=== PATIENT | male | born 1955 | race Caucasian/White ===

== ENCOUNTER 2020-04-10 21:42 | Emergency (ER) | payer MEDICARE, SELFPAY ==
[2020-04-10 21:52] VITALS: BP 149/84; PULSE 83; RESP 20; TEMP 36.7; O2SAT 95; BMI 29.8
--- NOTE | 2020-04-10 22:09 | CTR_ITS ---
PROCEDURE INFORMATION: Exam: CT Abdomen And Pelvis Without Contrast Exam date and time: 04/10/2020 10:34 PM Age: 64 years old Clinical indication: Abdominal pain; Patient HX: C/O abd cramping; Additional info: Abd pain TECHNIQUE: Imaging protocol: Computed tomography of the abdomen and pelvis without contrast. Radiation optimization: All CT scans at this facility use at least one of these dose optimization techniques: automated exposure control; mA and/or kV adjustment per patient size (includes targeted exams where dose is matched to clinical indication); or iterative reconstruction. COMPARISON: No relevant prior studies available. RADIATION DOSE METRICS: Total DLP (mGy-cm): 1542.05 FINDINGS: Mediastinal space: A moderate hiatal hernia is present. Liver: There is a diffuse decrease in hepatic parenchymal density, consistent with fatty infiltration. Gallbladder and bile ducts: There is sludge or stones in the gallbladder. The gallbladder is distended. No definite wall thickening or cholecystitis. There is no common bile duct dilation. Pancreas: Normal. No ductal dilation. Spleen: Normal. No splenomegaly. Adrenals: There is mild nodular thickening of both adrenal glands compatible with hyperplasia. Kidneys and ureters: There is no evidence of hydronephrosis. There is no evidence of renal calcifications. Stomach and bowel: Extensive diverticulosis is present in the distal colon. There is no evidence of colitis/diverticulitis. There is no evidence of intestinal perforation or obstruction. Appendix: A normal appendix is identified. Intraperitoneal space: Unremarkable. No free air. No significant fluid collection. Vasculature: The aorta demonstrates moderate atherosclerotic calcification. Lymph nodes: Unremarkable.No enlarged lymph nodes. Bladder: The bladder is normal. Reproductive: The prostate demonstrates mild nonspecific enlargement. The seminal vesicles are normal. The prostate demonstrates nonspecific parenchymal calcifications. Bones/joints: There are moderate degenerative changes in the spine. No acute bony abnormality. There is a vacuum disc at L3-L4. Soft tissues: There is a nonobstructing left inguinal hernia. There is a tiny fat filled umbilical hernia. Other findings: There is levoscoliosis. CT/CT abdomen pelvis wo con [id number] IMPRESSION: 1. There is sludge or stones in the gallbladder. The gallbladder is distended. No definite wall thickening or cholecystitis. No duct dilatation. 2. Diverticulosis without diverticulitis. No bowel thickening or inflammatory changes. No hydronephrosis or obstructing calculi. Radiation Dose CTDIVOL = (mGy): DLP = 1542.05 (mGy-cm)
[2020-04-10 22:22] LABS: Basophils % 0.3 %; Eosinophils # 0.2 10^3/uL (0.0-0.8); Eosinophils % 1.7 %; Hematocrit 42.6 % (42.0-52.0); Hemoglobin 14.2 g/dL (11.7-16.6); Lymphocytes # 0.9 10^3/uL (0.8-4.8); Lymphocytes % 8.7 %; Mean Corpuscular HGB Conc 33.3 g/dL (30.0-36.0); Mean Corpuscular Hemoglobin 33.8 pg (28.0-34.0); Mean Corpuscular Volume 101.4 fL (80-94); Mean Platelet Volume 9.6 fL (7.4-10.4); Monocytes # 0.5 10^3/uL (0.2-0.9); Neutrophils # 8.9 10^3/uL (1.8-7.7); Neutrophils % 83.8 %; Nucleated Red Blood Cells % 0 %; Platelet Count 242 10^3/cmm (130-400); Red Cell Distribution Width 13.3 % (12.1-15.1); White Blood Count 10.6 10^3/uL (4.0-10.0)
[2020-04-10 22:38] LABS: Alanine Aminotransferase 125 U/L (0-41); Albumin Level 4.3 g/dL (3.5-5.2); Alkaline Phosphatase 246 IU/L (40-130); Anion Gap 19.6 (5-19); Aspartate Amino Transferase 191 U/L (0-40); Blood Urea Nitrogen 36 mg/dL (8-23); C Reactive Protein 6.7 mg/L (0.0-4.9); Calcium 9.1 mg/dL (8.5-10.5); Carbon Dioxide 29 mmol/L (22-29); Chloride 96 mmol/L (98-107); Globulin 3.3 g/dL (1.3-4.6); Glomerular Filtration Rate 38.1 mL/min (90-130); Glucose 274 mg/dL (65-115); Osmolality Calculated 299 mOsm/kg (285-295); Potassium 3.6 mmol/L (3.5-5.1); Sodium 141 mmol/L (136-145); Total Bilirubin 1.6 mg/dL (0.15-1.2); Total Protein 7.6 g/dL (6.6-8.7)
[2020-04-10] MEDS: lidocaine 2% viscous 15 ML, aluminum-mag hydrox-simethicon 30 ML, sucralfate oral liq 1 GM PO (22:46)
[2020-04-10] MEDS: ketorolac 30 mg/mL INJ IVP (22:47)
[2020-04-10] MEDS: ondansetron 2 mg/ML SDV 2 mL 4 MG IVP (22:47)
[2020-04-10 22:51] LABS: Lipase 344 U/L (13-60)
--- NOTE | 2020-04-10 22:55 | W.ED.ABDPA2 ---
HPI - Abdominal Pain General: Chief Complaint: Abdominal Pain Stated Complaint: abd pain Time Seen by Provider: 04/10/20 22:01 History of Present Illness: HPI narrative: 64-year-old male with no history of belly surgery. He presents with mainly upper abdominal discomfort that started this evening around 5 PM. He had been to eat out with his daughters for Father's Day a couple of hours prior. He was nauseated. No vomiting. No diarrhea. No blood in his stool. No fever. No one else was sick. His belly pain is improved, but is still significant. MD elicited complaint: abdominal pain Pertinent past history: none Onset (ago): hour(s) Location: Epigastric, LUQ and RUQ Severity: severe Quality: cramping, stabbing and aching Radiation: none Migration to: no migration Exacerbating factors: nothing Relieving factors: nothing Associated Symptoms: Reports nausea; Denies change in bowel habits, change in stool character, constipation, diarrhea, dysuria, fever(s), hematuria, hematemesis and vomiting Review of Systems Const: Denies: fever(s) Eyes: Denies: change in vision or blurry vision ENMT: Denies: swelling of lips/tongue, change in hearing, epistaxis, post nasal drip or sinus pain Card: Denies: chest pain, palpitations, irregular heart rhythm, edema, dyspnea on exertion or orthopnea Resp: Denies: dyspnea, productive cough, non-productive cough or wheezing GI: Reports: nausea; Denies: vomiting, hematemesis, diarrhea, constipation, change in bowel habits or change in stool character : Denies: difficulty urinating, dysuria or hematuria Musc: Denies: neck pain, back pain, joint redness or joint warmth Skin/Breast: Denies: rash, pruritus or erythema Neuro: Denies: headache(s), dizziness, vertigo or seizure-like activity Psych: Denies: anxiety PFSH ED PFSH: Social History Smoking and tobacco status: former smoker Physical Exam Const: GENERAL APPEARANCE: well developed ORIENTATION/CONSCIOUSNESS: Yes oriented to person, Yes oriented to place and Yes oriented to time HENMT: COMMON NORMALS: normocephalic, external ears normal and Normal external nose present HEAD & SCALP: normocephalic FACE & SINUS: normal facial exam NOSE: Normal external nose present and No nasal discharge present EXTERNAL EAR: Yes external ears normal MOUTH: tongue normal Eye: COMMON NORMALS: Equal, round and reactive pupils present, EOMs intact bilaterally and conjunctivae normal EYELID: eyelids normal CONJUNCTIVA: Yes conjunctivae normal PUPIL: Yes Equal, round and reactive pupils present Neck/C-Spine: GENERAL: No tracheal deviation Chest: COMMONS NORMALS: normal inspection of the chest CHEST: No tenderness Resp: COMMON NORMALS: negative for clear to auscultation bilaterally EFFORT & INSPECTION: No tachypneic, No respiratory distress, No retractions, No uses accessory muscles and No tracheal deviation AUSCULTATION: not clear to auscultation bilaterally, no rhonchi, wheezes and lung sounds not diminished Cardio: COMMON NORMALS: regular rate and regular rhythm RATE: regular rate RHYTHM: regular rhythm HEART SOUNDS: no murmurs PERIPHERAL PULSES: radial pulses present GI: INSPECTION: Yes abdominal distension AUSCULTATION: No Hyperactive bowel sounds present and No Hypoactive bowel sounds present PALPATION: Yes Tenderness to palpation present (GI) Details: LUQ and RUQ, No Guarding due to palpation present (GI) and No Rigid due to palpation PERCUSSION: no dullness to percussion and no tympanic to percussion Neuro: SENSORIUM/ORIENTATION: Yes oriented to person, Yes oriented to place and Yes oriented to time Psych: COMMON NORMALS: mental status grossly normal Skin: COMMON NORMALS: no rashes or lesions noted GENERAL SKIN EXAM: no rashes or lesions noted Course Vital Signs: Vital signs: Vital Signs Temperature 98.0 F 04/10/20 21:52 Pulse Rate 91 04/10/20 23:11 Respiratory Rate 20 H 04/10/20 23:11 Blood Pressure 117/72 04/10/20 23:11 Pulse Oximetry 95 04/10/20 21:52 MDM - Abdominal Pain MDM Narrative: Medical decision making narrative: Significant belly tenderness in a patient with no history of belly surgery. His white blood cell count is 10.6. His creatinine is 1.8. His BUN is 36. Other laboratory is benign. CT of the belly is pending. It had to be done without contrast due to decreased renal function. CT shows some gallbladder distention without wall thickening. Ultrasound shows sludge and a couple of stones in the neck. There is no wall thickening, pericholecystic fluid, or bile duct dilatation. His pain is resolved Lab Data: Labs: Lab Results 04/10/20 04/10/20 04/10/20 Range/Units 22:13 22:13 23:10 WBC 10.6 H (4.0-10.0) 10^3/ uL RBC 4.20 (4.1-5.3) 10^6/u L Hgb 14.2 (11.7-16.6) g/dL Hct 42.6 (42.0-52.0) % MCV 101.4 H (80-94) fL MCH 33.8 (28.0-34.0) pg MCHC 33.3 (30.0-36.0) g/dL RDW 13.3 (12.1-15.1) % Plt Count 242 (130-400) 10^3/c mm MPV 9.6 (7.4-10.4) fL Neut % (Auto) 83.8 % Lymph % (Auto) 8.7 % [place] % (Auto) 5.0 % Eos % (Auto) 1.7 % Baso % (Auto) 0.3 % Neut # (Auto) 8.9 H (1.8-7.7) 10^3/u L Lymph # (Auto) 0.9 (0.8-4.8) 10^3/u L [place] # (Auto) 0.5 (0.2-0.9) 10^3/u L Eos # (Auto) 0.2 (0.0-0.8) 10^3/u L Baso # (Auto) 0.0 (0.0-0.1) 10^3/u L Nucleated RBC % (a uto) 0 % Nucleated RBCs # 0.0 /100WBC Sodium 141 (136-145) mmol/L Potassium 3.6 (3.5-5.1) mmol/L Chloride 96 L (98-107) mmol/L Carbon Dioxide 29 (22-29) mmol/L Anion Gap 19.6 H (5-19) BUN 36 H (8-23) mg/dL Creatinine 1.8 H (0.7-1.2) mg/dL GFR Calculation 38.1 L (90-130) mL/min Glucose 274 H (65-115) mg/dL Calculated Osmolal ity 299 H (285-295) mOsm/k g Calcium 9.1 (8.5-10.5) mg/dL Total Bilirubin 1.6 H (0.15-1.2) mg/dL AST 191 H (0-40) U/L ALT 125 H (0-41) U/L Alkaline Phosphata se 246 H (40-130) IU/L C-Reactive Protein 6.7 H (0.0-4.9) mg/L Total Protein 7.6 (6.6-8.7) g/dL Albumin 4.3 (3.5-5.2) g/dL Globulin 3.3 (1.3-4.6) g/dL Lipase 344 H (13-60) U/L Urine Color Yellow (Yellow) Urine Appearance Clear (CLEAR) Urine pH 5 (5-7) Ur Specific Gravit y 1.015 (1.005-1.030) Urine Protein Neg (Negative) Urine Glucose (UA) 4+ H (Normal) Urine Ketones Negative (Negative) Urine Blood Neg (Negative) Urine Nitrate Negative (Negative) Urine Bilirubin Neg (NEGATIVE) Urine Urobilinogen 4 H (Negative) mg/dL Ur Leukocyte Megan ase Negative (Negative) Discharge Plan Discharge Patient Disposition: Home, Self-Care Clinical Impression: Biliary colic Condition: Stable Discharge Orders: Discharge Order (Routine); Ordered 04/11/20 Ordered By: Vito Alvarado Referrals: Yee Vogel PA [Primary Care Provider] - 4-7 days Discharge Diet: Advance as tolerated and Clear Liquid Discharge Activity: Increase activity as tolerated Patient Instructions: Biliary Colic (ED), Abdominal Pain (ED) Activity Restrictions/Additional Instructions: Return for fever greater than 100, vomiting liquids or medications, return of pain, other concerning symptoms. Coding Level of Care Code ED Insurance Account Manager for Damari Fwd Exam Comprehensive
[2020-04-10 23:11] VITALS: BP 117/72; PULSE 91; RESP 20
[2020-04-10 23:23] LABS: Add Urine Microscopic? NO
[2020-04-10 23:32] LABS: Bilirubin Urine Neg (NEGATIVE); Blood Urine Neg (Negative); Glucose Urine UA 4+ (Normal); Ketones Urine Negative (Negative); Leukocyte Esterase Urine Negative (Negative); Nitrate Urine Negative (Negative); Protein Urine Neg (Negative); Specific Gravity, Urine 1.015 (1.005-1.030); Urine Appearance Clear (CLEAR); Urine Color Yellow (Yellow); Urobilinogen Urine 4 mg/dL (Negative); pH Urine 5 (5-7)
[2020-04-11 01:26] VITALS: BP 145/77; PULSE 84; RESP 16; O2SAT 94
--- NOTE | 2020-04-11 23:23 | USR_ITS ---
PROCEDURE INFORMATION: Exam: US Abdomen Limited, Right Upper Quadrant Exam date and time: 04/11/2020 12:33 AM Age: 64 years old Clinical indication: Abdominal pain; Additional info: Ruq pain TECHNIQUE: Imaging protocol: Real-time ultrasound of the abdomen with image documentation. Examination was focused on the right upper quadrant. COMPARISON: CT abdomen pelvis con [id number] 04/10/2020 10:48 PM FINDINGS: Liver: Increased echogenicity of the anterior liver associated with decreased penetrability consistent with fatty infiltration as on the recent CT scan. No suggestion of a liver mass. Normal blood flow in the main portal vein. Gallbladder: Low level echogenicity and a cluster of echogenic foci in the gallbladder neck corresponding well to the area of increased density in the proximal gallbladder on the recent CT scan; no apparent posterior shadowing from the echogenic foci on any images. Anterior gallbladder wall thickness 1.3 mm. Negative sonographic Lux sign. Common bile duct: Proximal CBD 6.2 mm. Pancreas: Probable visualization on 1 transverse image of a small segment of the pancreatic neck having normal size and echogenicity, but obscuration of all of the rest of the pancreas by bowel. Right kidney: Right kidney approximately 11.8 x 3.9 x 4.8 cm with no hydronephrosis or apparent mass or shadowing stone. Apparent column of [place] in the mid right kidney. Aorta: Proximal abdominal aorta 1.9 cm deep. US/US gall bladder [id number] IMPRESSION: 1. Sludge in the proximal gallbladder. Cluster of echogenic foci in the gallbladder neck causing no obvious posterior shadowing, therefore gallstones not confirmed. No gallbladder wall thickening or extrahepatic biliary ductal dilatation. 2. Hepatic steatosis as on the recent CT scan. 3. No apparent disease of the right kidney or the small visible portion of the pancreatic neck.
== END 2020-04-11 01:29 | disposition home or self-care (01) ==
PROVIDERS: Emergency Provider Emergency Medicine; PCP Physician Assistant
DX: K80.50 Calculus of bile duct without cholangitis or cholecystitis without obstruction (principal); Z87.891 Personal history of nicotine dependence
CPT/HCPCS: 12345; 74176; 76705; 80053; 81003; 83690; 85025; 86140; 96374; 96375; 99283; J1885; J2405

== ENCOUNTER 2020-07-01 01:01 | Emergency (ER) | payer MEDICARE, SELFPAY ==
[2020-07-01 01:06] VITALS: BP 150/89; PULSE 83; RESP 16; TEMP 36.5; O2SAT 94; BMI 29.7
--- NOTE | 2020-07-01 01:15 | ED_ITS ---
HPI - Abdominal Pain General: Chief Complaint: Abdominal Pain Stated Complaint: upper abd/back pain Time Seen by Provider: 07/01/20 01:13 Source: patient Mode of arrival: ambulatory Limitations: no limitations History of Present Illness: HPI narrative: 65-year-old male that states he has had issues with his gallbladder in the past. Patient states that tonight he started having sharp right upper quadrant pain 3 hours ago. He states his pain is a 7 out of 10. Denies any worsening or improving factors. Denies any fever. He has had no vomiting or diarrhea. MD elicited complaint: abdominal pain Onset (ago): hour(s) Location: RUQ Severity: moderate Quality: stabbing Exacerbating factors: nothing Associated Symptoms: Denies chills, dysuria and fever(s) Review of Systems Const: Denies: fever(s), chills, body aches or change in appetite Eyes: Denies: blurry vision or eye discomfort ENMT: Denies: throat pain or dental pain Card: Denies: chest pain Resp: Denies: dyspnea GI: Reports: abdominal pain : Denies: dysuria Musc: Denies: neck pain or back pain Skin/Breast: Denies: rash Neuro: Denies: headache(s) Psych: Denies: depression [place]/Lymph: Denies: easy bruising All/Imm: Denies: urticaria PFSH ED PFSH: Social History Smoking and tobacco status: former smoker Physical Exam Const: COMMON NORMALS: no acute distress, patient oriented x3 and healthy appe aring HENMT: COMMON NORMALS: normocephalic and atraumatic HEAD & SCALP: normocephalic and atraumatic Eye: COMMON NORMALS: Equal, round and reactive pupils present and EOMs intact bilaterally PUPIL: Yes Equal, round and reactive pupils present Neck/C-Spine: COMMON NORMALS: full ROM and supple Chest: COMMONS NORMALS: normal inspection of the chest and normal palpation of entire chest wall Resp: COMMON NORMALS: normal respiratory effort, No retractions, No use of accessory muscles and clear to auscultation bilaterally AUSCULTATION: clear to auscultation bilaterally Cardio: COMMON NORMALS: regular rate, regular rhythm and No murmurs present (Cardio) RATE: regular rate RHYTHM: regular rhythm GI: COMMON NORMALS: Normal to inspection, nondistended, normoactive bowel sounds present, Soft to palpation and no masses PALPATION: Yes Soft to palpation and Yes Tenderness to palpation present (GI) Details: RUQ Extremity: COMMON NORMALS: normal to inspection and full ROM Neuro: COMMON NORMALS: patient oriented x3, moves all extremities and no focal motor deficits Psych: COMMON NORMALS: mental status grossly normal, Normal thought process present and cooperative THOUGHT PROCESS: Normal thought process present Skin: COMMON NORMALS: no rashes or lesions noted and no wounds GENERAL SKIN EXAM: no rashes or lesions noted Course Vital Signs: Vital signs: Vital Signs Temperature 97.7 F 07/01/20 01:06 Pulse Rate 84 07/01/20 01:43 Respiratory Rate 18 07/01/20 01:43 Blood Pressure 156/93 07/01/20 01:43 Pulse Oximetry 94 07/01/20 01:43 MDM - Abdominal Pain MDM Narrative: Medical decision making narrative: Patient presents here with abdominal pain. Patient found to have cholecystitis along with choledocholithiasis. Spoke to physician at [facility] and will transfer there for higher level of care. Patient needs an ERCP. Patient given IV antibiotics here and will transfer. Patient's vital signs have been stable. Lab Data: Labs: Lab Results 07/01/20 07/01/20 Range/Units 01:23 01:23 WBC 17.3 H (4.0-10.0) 10^3/ uL RBC 4.42 (4.1-5.3) 10^6/u L Hgb 14.7 (11.7-16.6) g/dL Hct 43.5 (42.0-52.0) % MCV 98.4 H (80-94) fL MCH 33.3 (28.0-34.0) pg MCHC 33.8 (30.0-36.0) g/dL RDW 13.7 (12.1-15.1) % Plt Count 253 (130-400) 10^3/c mm MPV 9.4 (7.4-10.4) fL Neut % (Auto) 90.7 % Lymph % (Auto) 5.0 % [place] % (Auto) 3.0 % Eos % (Auto) 0.7 % Baso % (Auto) 0.3 % Neut # (Auto) 15.69 H (1.8-7.7) 10^3/u L Lymph # (Auto) 0.9 (0.8-4.8) 10^3/u L [place] # (Auto) 0.5 (0.2-0.9) 10^3/u L Eos # (Auto) 0.1 (0.0-0.8) 10^3/u L Baso # (Auto) 0.1 (0.0-0.1) 10^3/u L Nucleated RBC % (a uto) 0 % Nucleated RBCs # 0.0 /100WBC Sodium 139 (136-145) mmol/L Potassium 3.6 (3.5-5.1) mmol/L Chloride 95 L (98-107) mmol/L Carbon Dioxide 30 H (22-29) mmol/L Anion Gap 17.6 (5-19) BUN 25 H (8-23) mg/dL Creatinine 1.5 H (0.7-1.2) mg/dL GFR Calculation 46.8 L (90-130) mL/min Glucose 305 H (65-115) mg/dL Calculated Osmolal ity 296 H (285-295) mOsm/k g Calcium 9.6 (8.5-10.5) mg/dL Total Bilirubin 2.3 H (0.15-1.2) mg/dL AST 65 H (0-40) U/L ALT 43 H (0-41) U/L Alkaline Phosphata se 169 H (40-130) IU/L Total Protein 7.8 (6.6-8.7) g/dL Albumin 4.5 (3.5-5.2) g/dL Globulin 3.3 (1.3-4.6) g/dL Lipase 215 H (13-60) U/L Imaging Data ^: CT Abd/Pel: Radiologist's impression: [address] [place] [address] CT Scan Report Signed Patient: Yosef Neville Unit #: [id number] : 1955 Age/Sex: 65 / M ADM Date: 07/01/20 Loc: ER Room/Bed: Attending Dr: Ordering Provider/Ordering MD: Deedee Philip MD Date of Service: 07/01/20 Procedure(s): CT abdomen pelvis w con* [id number] Accession Number(s): [id number] Report Number: [id number] PROCEDURE INFORMATION: Exam: CT Abdomen And Pelvis With Contrast Exam date and time: 07/01/2020 1:58 AM Age: 65 years old Clinical indication: Abdominal pain; Generalized; Additional info: Abd pain TECHNIQUE: Imaging protocol: Computed tomography of the abdomen and pelvis with intravenous contrast. Radiation optimization: All CT scans at this facility use at least one of these dose optimization techniques: automated exposure control; mA and/or kV adjustment per patient size (includes targeted exams where dose is matched to clinical indication); or iterative reconstruction. Contrast material: VISI; Contrast volume: 95 ml; Contrast route: INTRAVENOUS (IV); COMPARISON: CT abdomen pelvis wo con [id number] 2020-04-10 22:48 RADIATION DOSE METRICS: Total DLP (mGy-cm): 1327.11 FINDINGS: Mediastinal space: Small gastroesophageal sliding type hiatal hernia. Mild gastro-esophageal thickening. Question distal esophagitis. Small hiatal hernia. Liver: Normal. No mass. Gallbladder and bile ducts: Cholelithiasis and choledocholithiasis with biliary duct dilatation. Pancreas: Normal. No ductal dilation. Spleen: Normal. No splenomegaly. Adrenals: Normal. No mass. Kidneys and ureters: Small, less than 5 mm, renal hypodensity. Highly likely to be benign and does not require follow-up imaging or biopsy per ACR. Stomach and bowel: Mild colonic diverticulosis without evidence for acute diverticulitis. Appendix: No evidence of appendicitis. Intraperitoneal space: Unremarkable. No free air. No significant fluid collection. Vasculature: Mild to moderate aortic and iliac artery atherosclerotic calcification. Lymph nodes: Unremarkable. No enlarged lymph nodes. Bladder: Unremarkable as visualized. Reproductive: Unremarkable as visualized. Bones/joints: Mild levoconvex lumbar curvature. Soft tissues: Small left inguinal fat protruding hernia. CT/CT abdomen pelvis w con* [id number] IMPRESSION: 1. Cholelithiasis and choledocholithiasis with biliary duct dilatation. Correlate for right upper quadrant pain and cholecystitis. 2. Small hiatal hernia. Mild gastro-esophageal thickening. Question distal esophagitis. Discharge Plan Discharge Patient Disposition: Xfer Other Clinical Impression: Cholecystitis, Choledocholithiasis Condition: Stable Referrals: Yee Vogel PA [Primary Care Provider] - Coding Level of Care Code ED [employer] Build[employer] Laminator for Chg Fwd Exam Comprehensive
[2020-07-01 01:29] LABS: Basophils # 0.1 10^3/uL (0.0-0.1); Basophils % 0.3 %; Eosinophils # 0.1 10^3/uL (0.0-0.8); Eosinophils % 0.7 %; Hematocrit 43.5 % (42.0-52.0); Hemoglobin 14.7 g/dL (11.7-16.6); Lymphocytes # 0.9 10^3/uL (0.8-4.8); Mean Corpuscular HGB Conc 33.8 g/dL (30.0-36.0); Mean Corpuscular Hemoglobin 33.3 pg (28.0-34.0); Mean Corpuscular Volume 98.4 fL (80-94); Mean Platelet Volume 9.4 fL (7.4-10.4); Monocytes # 0.5 10^3/uL (0.2-0.9); Neutrophils # 15.69 10^3/uL (1.8-7.7); Neutrophils % 90.7 %; Nucleated Red Blood Cells % 0 %; Platelet Count 253 10^3/cmm (130-400); Red Blood Count 4.42 10^6/uL (4.1-5.3); Red Cell Distribution Width 13.7 % (12.1-15.1); White Blood Count 17.3 10^3/uL (4.0-10.0)
[2020-07-01] MEDS: ondansetron 2 mg/ML SDV 2 mL 4 MG IVP (01:36)
[2020-07-01] MEDS: morphine 4 mg/mL SDV 1 mL IVP (01:36)
[2020-07-01] MEDS: sodium chloride 0.9% 1,000 ML 999 ML IV (01:36)
[2020-07-01 01:43] VITALS: BP 156/93; PULSE 84; RESP 18; O2SAT 94
[2020-07-01 01:51] LABS: Alanine Aminotransferase 43 U/L (0-41); Albumin Level 4.5 g/dL (3.5-5.2); Alkaline Phosphatase 169 IU/L (40-130); Anion Gap 17.6 (5-19); Aspartate Amino Transferase 65 U/L (0-40); Blood Urea Nitrogen 25 mg/dL (8-23); Calcium 9.6 mg/dL (8.5-10.5); Carbon Dioxide 30 mmol/L (22-29); Chloride 95 mmol/L (98-107); Globulin 3.3 g/dL (1.3-4.6); Glomerular Filtration Rate 46.8 mL/min (90-130); Glucose 305 mg/dL (65-115); Lipase 215 U/L (13-60); Osmolality Calculated 296 mOsm/kg (285-295); Potassium 3.6 mmol/L (3.5-5.1); Sodium 139 mmol/L (136-145); Total Bilirubin 2.3 mg/dL (0.15-1.2); Total Protein 7.8 g/dL (6.6-8.7)
--- NOTE | 2020-07-01 02:00 | USR_ITS ---
NOTE: Report was unsigned for reason: Order was edited. Original Signature date and time was: 07/01/20 0333 PROCEDURE INFORMATION: Exam: US Abdomen, Limited; Right Upper Quadrant Exam date and time: 07/01/2020 2:00 AM Age: 65 years old Clinical indication: Abdominal pain; Additional info: Abd pain TECHNIQUE: Imaging protocol: US abdomen. Real time ultrasound with image documentation. Limited exam focused on the right upper quadrant. COMPARISON: US gall bladder [id number] 2020-04-11 00:19 FINDINGS: Liver: Echogenic enlarged liver compatible with hepatic steatosis. Gallbladder: 4 mm thickened gallbladder wall, gallbladder sludge, and dilated common biliary duct. Suspicious for acute cholecystitis related to obstructing choledocholithiasis. Common bile duct: Normal. No stones. No dilation. Pancreas: Pancreas not well seen due to bowel gas. Right kidney: Normal. No mass. No hydronephrosis. MTDD
[2020-07-01] MEDS: iodixanol 320 mg/mL 100mL Btl IV (02:12)
[2020-07-01] MEDS: piperacillin-tazobactam 3.375 GM in sodium chloride 0.9% (plus) 50 ML IV (03:22)
[2020-07-01 05:33] VITALS: BP 146/87; PULSE 87; RESP 16; O2SAT 94
[2020-07-01 07:28] VITALS: BP 104/60; PULSE 77; RESP 16; O2SAT 97
--- NOTE | 2020-07-01 07:30 | PC.NURSE ---
Denies any and all pain
[2020-07-01 07:33] VITALS: BP 96/58; PULSE 64; RESP 18; O2SAT 97
[2020-07-01 08:03] VITALS: BP 156/83; PULSE 87; RESP 16; O2SAT 96
== END 2020-07-01 08:05 | disposition other institution (70) ==
PROVIDERS: Emergency Provider Emergency Medicine; PCP Physician Assistant
DX: K80.40 Calculus of bile duct with cholecystitis, unspecified, without obstruction (principal); Z87.891 Personal history of nicotine dependence
CPT/HCPCS: 12345; 74177; 76705; 80053; 83690; 85025; 96365; 96375; 99283; 99285; J2270; J2405; J2543; J7030; Q9967

== ENCOUNTER → 2020-08-01 08:48 | Outpatient (BNVA) | payer MEDICARE, SELFPAY | PROVIDERS: PCP Physician Assistant; Visit Provider Surgery | DX: R10.9 Unspecified abdominal pain (principal) | CPT/HCPCS: 87635 ==

== ENCOUNTER 2020-08-04 05:40 | Day surgery (SDC) | payer MEDICARE, SELFPAY ==
[2020-08-03 09:59] VITALS: BMI 30.9
[2020-08-04] VITALS (9 sets, daily range): BP systolic 143–190; BP diastolic 81–114; PULSE 54–66; RESP 13–203; TEMP 36.2–36.5; O2SAT 92–99
--- NOTE | 2020-08-04 06:37 | ANES.PREANE2 ---
Pre-Anesthetic Assessment Pre-Anesthetic Assessment: Height/Weight: Height 1.85 m Weight 106.594 kg Temp Pulse Resp BP Pulse Ox 97.7 F 66 203 H 190/114 97 08/04/20 06:29 08/04/20 06:29 08/04/20 06:29 08/04/20 06:29 08/04/20 06:29 Preop Diagnosis: galllstones Proposed Procedure: Operation Date: 08/04/20 07:15 Proposed Procedures p Laparoscopic Cholecystectomy(Not Applicable) - Too Julian MD Familial anesthetic complications: none Was Beta Karma taken within 24 hours: Yes Last intake: Intake Last Liquid Date 08/03/20 Last Liquid Time 18:30 Last Solid Date 08/03/20 Last Solid Time 18:30 Social: Social History: No alcohol and No tobacco Comment: former smoker Exam: Pre-Anes Outpt Exam: alert, oriented x 3, clear to auscultation bilaterally and regular rate & rhythm Airway: Cervical ROM: WNL MP: 3 Dentition: Loose (bottom middle) Pulmonary: Pulmonary: COPD CV/HEM: CV/HEM: HTN Anesthetic Plan: ASA status: 2 Anesthesia: General Risk of > 500 ml blood loss (7ml/kg in children): No PFSH Anesthesia PFSH: Social History Smoking and tobacco status: former smoker Data Anesthesia Cardiac Studies: No Data to Display
[2020-08-04] MEDS: sodium chloride 0.9% 1,000 ML 30 ML IV (06:46)
[2020-08-04 06:54] LABS: Alanine Aminotransferase 18 U/L (0-41); Albumin Level 4.1 g/dL (3.5-5.2); Alkaline Phosphatase 122 IU/L (40-130); Aspartate Amino Transferase 18 U/L (0-40); Globulin 2.9 g/dL (1.3-4.6); Total Bilirubin 0.7 mg/dL (0.15-1.2)
--- NOTE | 2020-08-04 07:29 | W.PM.OPSUD ---
Surgery/Procedure H&P Update DATE OF PROCEDURE: August 04, 2020 DATE H&P PERFORMED: 07/25/20 H&P UPDATE INFORMATION: No changes to prior documentation PREOP DIAGNOSIS: galllstones PLANNED PROCEDURE: Operation Date: 08/04/20 07:15 Proposed Procedures p Laparoscopic Cholecystectomy(Not Applicable) - Too Julian MD
--- NOTE | 2020-08-04 08:26 | P.OP_ITS ---
Operative Report Date of procedure: August 04, 2020 Pre-op Diagnosis: Cholelithiasis, status post ERCP for choledocholithiasis. Post-op diagnosis: same Procedure Done: Laparoscopic cholecystectomy. Specimens removed/disposition: Gallbladder. Surgeon: Too Julian Anesthesia: General Estimated blood loss (mL): 5 Complications: None. Condition: stable Disposition: PACU Procedure: The patient was brought to the Operating Room and was placed in a supine position on the Operating Room table. General endotracheal anesthesia was induced. The abdomen was prepped and draped in a sterile fashion. A small vertical incision was carried out in the inferior aspect of the umbilicus. Blunt dissection was carried out down to the fascia, which was grasped with a Ayesha clamp. A stay suture of 0 Vicryl was placed on either side of the midline and the midline fascia was incised. The underlying peritoneum was opened bluntly and the Janiya port was placed directly into the peritoneal cavity and was held in place with the inflatable balloon. The peritoneal cavity was insufflated with carbon dioxide. The laparoscope was used to inspect the abdominal cavity. No gross abnormalit ies were initially noted. A 5 millimeter port was placed in the epigastrium under direct vision. Two 5-millimeter ports were placed on the right side of the abdomen under direct vision. The gallbladder was grasped and was elevated. The patient had multiple chronic adhesions to the fundus and infundibular region of the gallbladder which were taken down using blunt dissection with some cautery to maintain hemostasis. Blunt dissection and hydrodissection were carried out in the infundibular region of the gallbladder and the cystic duct and cystic artery were identified. The gallbladder was partially removed from the liver bed using cautery and the spatula to confirm the anatomy before the structures were clipped and divided. The gallbladder was then removed from the liver bed using cautery and the spatula. After the gallbladder had been removed from the liver bed, the laparoscope was moved to the epigastric port and the gallbladder was removed from the peritoneal cavity through the umbilical port site after being placed in a laparoscopic bag. The stay sutures of Vicryl were tied to each other at the umbilicus. An additional [id number] suture of 0 Vicryl was placed, closing the defect so that it was airtight. The perihepatic spaces were irrigated with saline and the liver bed was reinspected. No ongoing problems were seen. The remaining ports were removed from the abdominal wall and the pneumoperitoneum was evacuated. All skin incisions were closed using inverted interrupted sutures of 4-0 Vicryl. Benzoin and Steri-Strips were placed over the incisions and Band-Aids followed. The patient was taken to the Recovery Area in stable condition postoperatively.
--- NOTE | 2020-08-04 08:44 | SUR.PHASEI ---
0842- DR BATISTA ATTEMPTED TO CALL FRIENDANTONIETTA FOR UPDATE, NO ANSWER
--- NOTE | 2020-08-04 08:52 | SUR.PHASEI ---
0849- ORAL AIRWAY OUT, SIMPLE MASK AT 6LPM, SAT 99%
--- NOTE | 2020-08-04 09:58 | ANE.PACU2 ---
Inpatient post-anesthesia follow up: Airway intact: Yes Vital signs: Temperature 97.4 F Pulse Rate 56 Respiratory Rate 16 Blood Pressure 157/81 Pulse Oximetry 92 Oxygen Delivery Me thod Room Air Oxygen Flow Rate 2 Fraction of Inspir ed Oxygen Hydration adequate: Yes Nausea and vomiting: No Pain level: 2 Mental status: Baseline
== END 2020-08-04 10:00 | disposition home or self-care (01) ==
PROVIDERS: PCP Physician Assistant; Visit Provider Surgery
PROC: 0FT44ZZ Resection of Gallbladder, Percutaneous Endoscopic Approach (ICD-10-PCS; CPT 47562; principal; 2020-08-04 07:15)
DX: K80.10 Calculus of gallbladder with chronic cholecystitis without obstruction (principal); J44.9 Chronic obstructive pulmonary disease, unspecified; I10 Essential (primary) hypertension; Z87.891 Personal history of nicotine dependence
CPT/HCPCS: 47562; 12345; 36415; 80076; 88304; J0690; J1100; J1885; J2405; J2704; J2710; J3010; J3490; J7030; J7611